=== PATIENT | male | born 1965 | race Caucasian/White ===

== ENCOUNTER → 2020-07-28 10:39 | Outpatient (CLI) | payer OTHER, SELFPAY ==
--- NOTE | 2020-07-28 | DI.MRI.S_ITS ---
PROCEDURE: MR LUMBAR SPINE WO CON INDICATIONS: RADICULOPATHY TECHNIQUE: Noncontrast sagittal T1 spin echo and T2 fast echo, sagittal STIR, axial T1 and T2 fast spin echo through the lumbar spine. In cases with scoliosis, additional coronal T2 fast spin echo may be performed. COMPARISON: None. FINDINGS: Image quality: Excellent. Alignment and Curvature: There is normal bony alignment. Bone Marrow: Marrow is of normal overall signal. No acute vertebral body compression fractures. Spinal Cord: Conus medullaris terminates at the L1 level. Visualized cord demonstrates normal signal and size. Paraspinous Soft Tissues: No paravertebral masses. T12-L1: Normal appearance. L1-L2: Normal appearance. L2-L3: Slight loss of disc signal. Mild, diffuse disc bulge. No central stenosis. No neural foraminal narrowing. No neural compression. L3-L4: Loss of disc signal. Mild, diffuse disc bulge. No central stenosis. Moderate right mild left neural foraminal narrowing. No neural compression. Fissure noted in the right foraminal annulus. L4-L5: Loss of disc signal and slight loss of disc height. Mild to moderate diffuse disc bulge. Mild bilateral facet hypertrophy. No central stenosis. Moderate right and severe left neural foraminal narrowing with compression of the exiting left L4 nerve root. L5-S1: Slight loss of disc signal. Mild bilateral facet hypertrophy. No central stenosis. No neural foraminal narrowing. No neural compression. IMPRESSION: 1. Multilevel degenerative disc disease. 2. Multilevel facet arthropathy. 3. No severe central canal narrowing. 4. Severe left L4-L5 neural foraminal narrowing with compression of the exiting left L4 nerve root. Dictated by: Alis Chan MD, PhD on 07/30/2020 at 12:37 Approved by: Alis Chan MD, PhD on 07/30/2020 at 12:42
--- NOTE | 2020-07-28 | DI.MRI.S_ITS ---
PROCEDURE: MR CERVICAL SPINE WO CON INDICATIONS: RADICULOPATHY TECHNIQUE: Noncontrast sagittal T1 spin echo and T2 fast spin echo, sagittal STIR, foraminal oblique sagittal T2 fast spin echo, and axial gradient echo or T2 fast spin echo through the cervical spine. COMPARISON: None. FINDINGS: Image quality: Excellent. Alignment and Curvature: There is normal bony alignment. Bone Marrow: Marrow demonstrates normal overall signal. Spinal Cord: Visualized spinal cord has normal size and signal. No cerebellar tonsillar herniation. Paraspinous Soft Tissues: No paravertebral masses. Prevertebral soft tissues are normal in thickness. C2-C3: Slight loss of disc signal. No central stenosis no neural foraminal narrowing. No neural compression. C3-C4: Loss of disc signal. Slight loss of disc height. Mild, diffuse disc bulge. Moderate right and mild left uncovertebral joint hypertrophy. Mild narrowing of the central canal. Severe right and mild left neural foraminal narrowing with compression of the exiting right C4 nerve root. C4-C5: Loss of disc signal. Minimal, diffuse disc bulge. Mild left uncovertebral joint hypertrophy. Mild narrowing of the central canal. Moderate left neural foraminal narrowing. No neural compression. C5-C6: Loss of disc signal. Mild, diffuse disc bulge. Mild bilateral uncovertebral joint hypertrophy. Mild narrowing of the central canal. Mild bilateral neural foraminal narrowing. No neural compression. C6-C7: Loss of disc signal and slight loss of disc height. Mild, diffuse disc bulge. Mild bilateral uncovertebral joint hypertrophy. Mild narrowing of the central canal. Mild bilateral neural foraminal narrowing. No neural compression. C7-T1: Normal appearance. IMPRESSION: 1. Multilevel degenerative disc disease. 2. Multilevel uncovertebral arthropathy. 3. No severe central canal narrowing. 4. Severe right C3-C4 neural foraminal narrowing with compression of the exiting right C4 nerve root. Dictated by: Alis Chan MD, PhD on 07/30/2020 at 12:46 Approved by: Alis Chan MD, PhD on 07/30/2020 at 12:52
== END ==
PROVIDERS: Referring Provider Family Medicine; Visit Provider Family Medicine
DX: G62.9 Polyneuropathy, unspecified; M47.816 Spondylosis without myelopathy or radiculopathy, lumbar region; M51.36 Other intervertebral disc degeneration, lumbar region; M48.061 Spinal stenosis, lumbar region without neurogenic claudication; M47.812 Spondylosis without myelopathy or radiculopathy, cervical region; M50.31 Other cervical disc degeneration, high cervical region; M48.02 Spinal stenosis, cervical region
CPT/HCPCS: 72141; 72148

== ENCOUNTER → 2021-07-19 08:32 | Outpatient (CLI) | payer OTHER, SELFPAY ==
[2021-07-19 20:32] LABS: Folate > 20.0 ng/mL (2.76-20.0); Vitamin B12 864 pg/mL (239-931)
[2021-07-22 15:52] LABS: Albumin 3.9 g/dL (2.9-4.4); Alpha-1-Globulin 0.2 g/dL (0.0-0.4); Alpha-2-Globulin 0.6 g/dL (0.4-1.0); Gamma Globulin 1.4 g/dL (0.4-1.8); Globulin Total 3.2 g/dL (2.2-3.9); Protein, Total 7.1 g/dL (6.0-8.5)
== END ==
PROVIDERS: Visit Provider Psychiatry & Neurology Neurology
DX: R20.2 Paresthesia of skin (principal)
CPT/HCPCS: 82607; 82746; 84155; 84165

== ENCOUNTER → 2021-08-23 10:09 | Outpatient (CLI) | payer OTHER, SELFPAY ==
[2021-08-23 18:58] LABS: Alanine Aminotransferase 36 IU/L (<50); Albumin Globulin Ratio 1.1 (1.0-2.8); Alkaline Phosphatase 71 U/L (38-126); Aspartate Aminotransferase 32 IU/L (17-59); BUN Creatinine Ratio 15.9 (6-22); Bilirubin Total 1.2 mg/dL (0.2-1.3); Blood Urea Nitrogen 13 mg/dL (9-20); Calcium 9.1 mg/dL (8.4-10.2); Carbon Dioxide 29 mmol/L (22-32); Chloride 105 mmol/L (98-107); Cholesterol 152 mg/dL (140-199); Estimated Glomerular Filt Rate > 60 mL/min (>60); Globulin 3.5 g/dL (1.7-4.1); Glucose 102 mg/dL (70-100); HDL Cholesterol 44 mg/dL (40-60); HEMOLYSIS < 15 (0-50); LDL Cholesterol Calculated 90 mg/dL (<100); Potassium 4.3 mmol/L (3.4-5.1); Sodium 139 mmol/L (137-145); Total Protein 7.5 g/dL (6.3-8.2); Triglycerides 88 mg/dL (35-150)
[2021-08-23 19:28] LABS: Prostate Specific Antigen 0.416 ng/mL (0.10-4.00)
[2021-08-23 19:33] LABS: TSH w/ Reflex to FT4 1.39 uIU/mL (0.47-4.68)
== END ==
PROVIDERS: Visit Provider Family Medicine
DX: E78.5 Hyperlipidemia, unspecified (principal); I10 Essential (primary) hypertension; Z00.00 Encounter for general adult medical examination without abnormal findings
CPT/HCPCS: 80053; 80061; 84153; 84443

== ENCOUNTER → 2022-02-24 11:09 | Outpatient (CLI) | payer OTHER, SELFPAY ==
--- NOTE | 2022-02-24 11:10 | DI.MRI.S_ITS ---
PROCEDURE: MR CERVICAL SPINE WO/W CON INDICATIONS: PARESTHESIAS TECHNIQUE: Noncontrast sagittal T1 spin echo and T2 fast spin echo, sagittal STIR, sagittal PD fast spin echo, foraminal oblique sagittal T2 fast spin echo, axial gradient echo or T2 fast spin echo through the cervical spine. After the administration of contrast, sagittal and axial T1 spin echo with fat saturation through the cervical spine. COMPARISON: None. FINDINGS: Image quality: Excellent. Alignment and curvature: There is normal bony alignment. Marrow: Marrow demonstrates normal overall signal. Spinal cord: Visualized spinal cord is normal in size, without white matter lesions. No suspicious intramedullary enhancement. No cerebellar tonsillar herniation. Regional soft tissues: No paravertebral masses or suspicious enhancement. C2-C3: Normal appearance. C3-C4: Moderate right neural foraminal narrowing and mild left neural foraminal narrowing due to facet and uncovertebral hypertrophy. No spinal canal stenosis. C4-C5: Mild bilateral neural foraminal narrowing due to facet and uncovertebral hypertrophy. No spinal canal stenosis. C5-C6: Mild neural foraminal narrowing due to facet and uncovertebral hypertrophy. No spinal canal stenosis. C6-C7: Moderate left and mild right neural foraminal narrowing due to facet and uncovertebral hypertrophy. No spinal canal stenosis. C7-T1: Normal appearance. IMPRESSION: No evidence of demyelinating disease. Multilevel multifactorial degenerative changes with multilevel moderate neural foraminal stenosis. Correlate for any corresponding radicular symptoms. Approved by: Fantasma Hampton M.D. on 02/24/2022 at 11:31
--- NOTE | 2022-02-24 11:10 | DI.MRI.S_ITS ---
PROCEDURE: MR HEAD/BRAIN WO/W CON INDICATIONS: PARESTHESIAS TECHNIQUE: Noncontrast axial T1 spin echo, axial T2 fast spin echo, sagittal and axial FLAIR, coronal T2 fast spin echo, axial gradient echo, axial diffusion and ADC through the brain. After the administration of contrast, axial and coronal and sagittal 3D VIBE or T1 spin echo with fat saturation through the brain. COMPARISON: None. FINDINGS: Image quality: Excellent. CSF Spaces: Basal cisterns are patent. No extra-axial fluid collections. Ventricles are normal in size and shape. Brain: No midline shift. No intracranial bleeds or masses. No abnormal intracranial enhancement. The brainstem appears normal. Diffusion-weighted images demonstrate no acute ischemic insults. No chronic ischemic insults. Normal intravascular flow voids are present. Skull and face: Calvarial marrow is normal in signal. Orbits appear normal. Sinuses: Mild scattered paranasal sinus mucosal thickening. IMPRESSION: Unremarkable MRI of the brain without evidence of demyelinating disorder or other acute intracranial finding. Dictated by: Fantasma Hampton M.D. on 02/24/2022 at 11:27 Approved by: Fantasma Hampton M.D. on 02/24/2022 at 11:28
== END ==
PROVIDERS: PCP Family Medicine; Referring Provider Psychiatry & Neurology Neurology; Visit Provider Psychiatry & Neurology Neurology
DX: R20.2 Paresthesia of skin (principal); M47.812 Spondylosis without myelopathy or radiculopathy, cervical region; M48.02 Spinal stenosis, cervical region
CPT/HCPCS: 70553; 72156

== ENCOUNTER → 2023-04-02 09:28 | Outpatient (CLI) | payer OTHER, SELFPAY ==
[2023-04-02 19:10] LABS: Add Manual Diff / Slide Review NO; Basophils Absolute Auto 0 /uL (0-100); Basophils Percent Auto 0.7 % (0-2); Eosinophils Absolute Auto 300 /uL (0-450); Eosinophils Percent Auto 5.7 % (2-4); Hematocrit 42.6 % (41-53); Hemoglobin 14.7 g/dL (13.5-17.5); Lymphocytes Absolute Auto 1500 /uL (1100-4500); Lymphocytes Percent Auto 25.7 % (25-40); Mean Corpuscular HGB Conc 34.6 % (30-36); Mean Corpuscular Hemoglobin 30.7 PG (26-34); Mean Corpuscular Volume 88.9 fL (80-100); Monocytes Absolute Auto 400 /uL (0-900); Monocytes Percent Auto 6.4 % (3-14); Neutrophils Absolute Auto 3700 /uL (1500-7000); Neutrophils Percent Auto 61.5 % (50-75); Platelet Count 245 X10^3/uL (150-400); Red Blood Cell Count 4.79 X10^6/uL (4.5-5.9); Red Cell Distribution Width 12.7 % (11.6-14.8)
[2023-04-02 19:52] LABS: Alanine Aminotransferase 40 IU/L (<50); Albumin 4.1 g/dL (3.5-5.0); Albumin Globulin Ratio 1.1 (1.0-2.8); Alkaline Phosphatase 71 U/L (38-126); Aspartate Aminotransferase 31 IU/L (17-59); BUN Creatinine Ratio 14.8 (6-22); Bilirubin Total 1.6 mg/dL (0.2-1.3); Blood Urea Nitrogen 12 mg/dL (9-20); Calcium 9.4 mg/dL (8.4-10.2); Carbon Dioxide 25 mmol/L (22-32); Chloride 105 mmol/L (98-107); Cholesterol 139 mg/dL (140-199); Estimated Glomerular Filt Rate > 60 mL/min (>60); Globulin 3.6 g/dL (1.7-4.1); Glucose 102 mg/dL (70-100); HDL Cholesterol 37 mg/dL (40-60); HEMOLYSIS < 15 (0-50); LDL Cholesterol Calculated 86 mg/dL (<100); Potassium 4.2 mmol/L (3.4-5.1); Sodium 139 mmol/L (137-145); Total Protein 7.7 g/dL (6.3-8.2); Triglycerides 81 mg/dL (35-150)
[2023-04-02 20:21] LABS: Prostate Specific Antigen Scrn 0.464 ng/mL (0.1-4.0)
== END ==
PROVIDERS: PCP Family Medicine; Visit Provider Family Medicine
DX: Z12.5 Encounter for screening for malignant neoplasm of prostate (principal); I10 Essential (primary) hypertension; E78.5 Hyperlipidemia, unspecified
CPT/HCPCS: 80053; 80061; 85025; G0103

== ENCOUNTER → 2024-01-08 15:14 | Outpatient (CLI) | payer BC, SELFPAY ==
--- NOTE | 2024-01-08 15:30 | DI.US.S_ITS ---
PROCEDURE: US PERIPH VENOUS LOW EXTREM LT INDICATIONS: swelling TECHNIQUE: Real-time imaging, as well as color and pulse Doppler interrogation, were performed of the lower extremity deep veins from the inguinal ligament to the popliteal fossa, with documentation of the visualized calf veins. COMPARISON: None. FINDINGS: The common femoral, femoral, popliteal, and the visualized calf veins are normally compressible, and free of intraluminal thrombus. Color and pulse Doppler demonstrate normal phasic intraluminal flow. There is normal augmentation response to distal compression maneuver. IMPRESSION: No findings of lower extremity deep venous thrombosis. Dictated by: Solo Brady M.D. on 01/08/2024 at 16:22 Approved by: Solo Brady M.D. on 01/08/2024 at 16:22
== END ==
LOC: US 15:15
PROVIDERS: PCP Family Medicine; Referring Provider Physician Assistant Medical; Visit Provider Physician Assistant Medical
DX: M25.562 Pain in left knee (principal)
CPT/HCPCS: 93971

== ENCOUNTER → 2024-05-18 09:23 | Outpatient (CLI) | payer BC, SELFPAY ==
[2024-05-18 19:32] LABS: Alanine Aminotransferase 53 IU/L (<50); Albumin 4.2 g/dL (3.5-5.0); Albumin Globulin Ratio 1.2 (1.0-2.8); Alkaline Phosphatase 74 U/L (38-126); Aspartate Aminotransferase 83 IU/L (17-59); BUN Creatinine Ratio 15.7 (6-22); Bilirubin Total 1.2 mg/dL (0.2-1.3); Blood Urea Nitrogen 13 mg/dL (9-20); Carbon Dioxide 22 mmol/L (22-32); Chloride 107 mmol/L (98-107); Cholesterol 151 mg/dL (140-199); Estimated Glomerular Filt Rate > 60 mL/min (>60); Globulin 3.4 g/dL (1.7-4.1); Glucose 98 mg/dL (70-100); HDL Cholesterol 36 mg/dL (40-60); HEMOLYSIS 28 (0-50); LDL Cholesterol Calculated 93 mg/dL (<100); Potassium 4.2 mmol/L (3.4-5.1); Sodium 139 mmol/L (137-145); Total Protein 7.6 g/dL (6.3-8.2); Triglycerides 108 mg/dL (35-150)
[2024-05-18 19:40] LABS: Add Manual Diff / Slide Review NO; Basophils Absolute Auto 100 /uL (0-100); Basophils Percent Auto 0.8 % (0-2); Eosinophils Absolute Auto 400 /uL (0-450); Eosinophils Percent Auto 5.5 % (2-4); Hematocrit 41.3 % (41-53); Hemoglobin 14.1 g/dL (13.5-17.5); Lymphocytes Absolute Auto 1500 /uL (1100-4500); Lymphocytes Percent Auto 23.7 % (25-40); Mean Corpuscular HGB Conc 34.1 % (30-36); Mean Corpuscular Hemoglobin 31.1 PG (26-34); Mean Corpuscular Volume 91.1 fL (80-100); Monocytes Absolute Auto 400 /uL (0-900); Monocytes Percent Auto 5.7 % (3-14); Neutrophils Absolute Auto 4200 /uL (1500-7000); Neutrophils Percent Auto 64.3 % (50-75); Platelet Count 241 X10^3/uL (150-400); Red Blood Cell Count 4.53 X10^6/uL (4.5-5.9); Red Cell Distribution Width 12.9 % (11.6-14.8); White Blood Cell Count 6.5 X10^3/uL (4.5-11.0)
[2024-05-18 19:52] LABS: Hemoglobin A1C% w Est Avg Glu 5.1 % (4.0-6.0)
[2024-05-18 20:03] LABS: Prostate Specific Antigen Scrn 0.511 ng/mL (0.1-4.0)
== END ==
PROVIDERS: PCP Family Medicine; Visit Provider Family Medicine
DX: Z12.5 Encounter for screening for malignant neoplasm of prostate (principal); I10 Essential (primary) hypertension; K76.0 Fatty (change of) liver, not elsewhere classified; E80.4 Gilbert syndrome; E78.5 Hyperlipidemia, unspecified; G47.33 Obstructive sleep apnea (adult) (pediatric); Z99.89 Dependence on other enabling machines and devices; R73.01 Impaired fasting glucose
CPT/HCPCS: 80053; 80061; 83036; 85025; G0103

== ENCOUNTER → 2024-05-30 13:00 | Outpatient (CLI) | payer BC, SELFPAY ==
[2024-05-30 19:16] LABS: HEMOLYSIS < 15 (0-50); Iron 180 ug/dL (49-181)
[2024-05-30 19:20] LABS: Alanine Aminotransferase 48 IU/L (<50); Albumin 4.4 g/dL (3.5-5.0); Albumin Globulin Ratio 1.3 (1.0-2.8); Alkaline Phosphatase 72 U/L (38-126); Aspartate Aminotransferase 40 IU/L (17-59); Bilirubin Unconjugated 1.7 mg/dL (0.0-1.1); Globulin 3.4 g/dL (1.7-4.1); HEMOLYSIS 22 (0-50); Total Protein 7.8 g/dL (6.3-8.2)
[2024-05-30 19:30] LABS: Percent Iron Saturation 65 % (20-50); Total Iron Binding Capacity 279 ug/dL (261-462); Transferrin 217 mg/dL (206-381)
[2024-05-30 19:54] LABS: Ferritin 132 ng/mL (18-464)
[2024-06-01 00:07] LABS: HBsAg Screen Negative (Negative); Hepatitis A Antibody IgM Negative (Negative); Hepatitis B Core Antibody IgM Negative (Negative); Hepatitis C Antibody Non Reactive (Non Reactive)
== END ==
PROVIDERS: PCP Family Medicine; Visit Provider Family Medicine
DX: R74.8 Abnormal levels of other serum enzymes (principal); K76.0 Fatty (change of) liver, not elsewhere classified; R79.89 Other specified abnormal findings of blood chemistry
CPT/HCPCS: 80074; 80076; 82390; 82728; 83540; 83550; 83883; 84155; 84165

== ENCOUNTER → 2024-06-13 10:31 | Outpatient (CLI) | payer BC, SELFPAY ==
--- NOTE | 2024-06-13 10:32 | DI.US.S_ITS ---
PROCEDURE: US ABDOMEN LIMITED INDICATIONS: liver and pancreas due to elevated bilirubin and LFTs TECHNIQUE: Real-time scanning was performed of the abdominal and retroperitoneal organs, with image documentation. COMPARISON: None. FINDINGS: Liver: Measures 13.1 cm. Increased in echogenicity. Gallbladder: No gallstones. No wall thickening. No pericholecystic edema. Negative sonographic Middleton's sign. Biliary ducts: Intrahepatic bile ducts are non-dilated. Extrahepatic bile duct caliber measures 5 mm. Normal is 6-7 mm or less in diameter, or 10 mm or less post-cholecystectomy. Pancreas: Visualized portions of the pancreas are sonographically normal. Miscellaneous: No free abdominal fluid. IMPRESSION: 1. Increased hepatic echogenicity most consistent with hepatic steatosis. Other forms of hepatocellular disease could have similar appearance. 2. No acute cholecystitis. No gallstones. 3. No biliary or pancreatic ductal dilatation is identified. If persistent elevation in bilirubin consider CT abdomen pelvis with IV contrast or MRCP or MRI pancreas for further evaluation. Dictated by: Tim Spain M.D. on 06/13/2024 at 12:00 Approved by: Tim Spain M.D. on 06/13/2024 at 12:03
== END ==
LOC: US 10:31
PROVIDERS: PCP Family Medicine; Referring Provider Family Medicine; Visit Provider Family Medicine
DX: R17 Unspecified jaundice (principal); R74.8 Abnormal levels of other serum enzymes; R79.89 Other specified abnormal findings of blood chemistry; R79.0 Abnormal level of blood mineral
CPT/HCPCS: 76705

== ENCOUNTER → 2024-10-04 13:01 | Outpatient (CLI) | payer BC, SELFPAY ==
[2024-10-04 19:21] LABS: Add Manual Diff / Slide Review NO; Hematocrit 41.5 % (41-53); Hemoglobin 14.5 g/dL (13.5-17.5); Lymphocytes Absolute Auto 1500 /uL (1100-4500); Mean Corpuscular HGB Conc 34.9 % (30-36); Mean Corpuscular Hemoglobin 31.2 PG (26-34); Mean Corpuscular Volume 89.6 fL (80-100); Platelet Count 265 X10^3/uL (150-400)
[2024-10-04 19:35] LABS: HEMOLYSIS < 15 (0-50); Iron 100 ug/dL (49-181)
[2024-10-04 19:37] LABS: Alanine Aminotransferase 46 IU/L (<50); Albumin 4.6 g/dL (3.5-5.0); Albumin Globulin Ratio 1.4 (1.0-2.8); Alkaline Phosphatase 77 U/L (38-126); Blood Urea Nitrogen 12 mg/dL (9-20); Calcium 9.8 mg/dL (8.4-10.2); Carbon Dioxide 25 mmol/L (22-32); Chloride 104 mmol/L (98-107); Estimated Glomerular Filt Rate > 60 mL/min (>60); Globulin 3.4 g/dL (1.7-4.1); Glucose 96 mg/dL (70-99); HEMOLYSIS < 15 (0-50); Potassium 4.7 mmol/L (3.4-5.1); Sodium 137 mmol/L (137-145); Total Protein 8.0 g/dL (6.3-8.2)
[2024-10-04 19:49] LABS: Percent Iron Saturation 35 % (20-50); Total Iron Binding Capacity 286 ug/dL (261-462); Transferrin 227 mg/dL (206-381)
[2024-10-04 20:10] LABS: Ferritin 184 ng/mL (18-464); Thyroid Stimulating Hormone 0.995 uIU/mL (0.47-4.68)
[2024-10-11 00:36] LABS: CK-BB 0 % (0); CK-MB 0 % (0-3); CK-MM 100 % (97-100)
== END ==
PROVIDERS: PCP Family Medicine; Visit Provider Family Medicine
DX: R79.89 Other specified abnormal findings of blood chemistry (principal); R74.8 Abnormal levels of other serum enzymes; K76.0 Fatty (change of) liver, not elsewhere classified; E80.4 Gilbert syndrome; M79.10 Myalgia, unspecified site; R53.83 Other fatigue; K59.00 Constipation, unspecified
CPT/HCPCS: 80053; 80076; 82550; 82552; 82728; 83540; 83550; 84443; 85025; 85651; 86140